=== PATIENT | male | born 1960 | race Caucasian/White ===

== ENCOUNTER 2024-03-22 16:07 | Emergency (ER) | payer OTHER ==
[~2024-03-22] VITALS: Ht 152.4 cm; Wt 4.5 kg
[~2024-03-22 16:07] MED LIST: FLOMAX0.4 MG PO; HYDROCODON-ACE1 EA12 PO; ONDANSETRON ODT4 MG PO
[2024-03-22 16:10] VITALS: PULSE 93; RESP 18; TEMP 98.6
[2024-03-22] MEDS: METOCLOPRAMIDE HCL 10 MG/2ML VIAL IV ONE (18:49)
[2024-03-22] MEDS: SODIUM CHLORIDE 0.9% 1000ML 1,000 ML IV ONE (18:49)
[2024-03-22 19:00] VITALS: BP 117/76; PULSE 75; RESP 18; TEMP 98.2; O2SAT 98
== END 2024-03-22 18:52 | disposition home or self-care (01) ==
LOC: FSED 16:31
DX: R51.9 Headache, unspecified (principal); K76.9 Liver disease, unspecified; M54.9 Dorsalgia, unspecified; G89.29 Other chronic pain
CPT/HCPCS: 70450; 80053; 85025; 99284; J2765; J7030